=== PATIENT | female | born 1955 | race Hispanic/Latino ===

== ENCOUNTER 2017-05-27 10:13 | Emergency (ER) | payer SELFPAY ==
[2017-05-27 10:53] VITALS: BP 120/86
--- NOTE | 2017-05-27 11:44 | Emergency Department Report ---
Chief Complaint: Upper Respiratory Infection Stated Complaint: CHEST PAIN/HEADACHE/BACK PAIN/FEVER Time Seen by Provider: 05/27/17 11:15 - HPI History of Present Illness: numerous complaints states she cant take it any more coughing in triage cig copd hx vss nad no cp no sob no fever left [facility] last pm wo being seen hx chemo vss. sat wnl. no fever. - Exam Vital Signs: Vital Signs 05/27/17 10:47 Temperature 98.4 F Pulse Rate 94 H Respiratory 20 Rate Blood Pressure 120/86 O2 Sat by Pulse 100 Oximetry MSE screening note: Focused history and physical exam performed. Due to findings the following was ordered: ED Disposition for MSE Condition: Stable
--- NOTE | 2017-05-27 11:45 | XRay Report ---
ROUTINE CHEST, TWO VIEWS: Cough PA and lateral views demonstrate the heart and mediastinal contour to be of normal size and shape. The lungs are clear and fully expanded and the soft tissues and bony structures are normal. IMPRESSION: Normal study.
--- NOTE | 2017-05-31 20:07 | ED Elopement Review ---
ED Pt Elopement review - Call Back decision Pt Call Back Decision: No action required
== END 2017-05-27 15:43 | disposition left against medical advice (07) ==
LOC: ED 10:13
DX: R05 Cough (principal); Z53.21 Procedure and treatment not carried out due to patient leaving prior to being seen by health care provider
CPT/HCPCS: 71020

== ENCOUNTER 2021-10-02 13:28 | Outpatient (CLI) | payer OTHER ==
--- NOTE | 2021-10-02 16:24 | XRay Report ---
CERVICAL SPINE 3 VIEWS INDICATION: Neck pain. COMPARISON: None. IMPRESSION: Normal alignment. Mild multilevel degenerative disc disease is evident. C4-5 and C5-6 a ppear to be most affected. There is mild facet arthropathy more so on the left side with C3-4 being m ost affected. No acute osseous or soft tissue abnormality. LUMBOSACRAL SPINE 3 VIEWS INDICATION: BACK PAIN. COMPARISON: None. IMPRESSION: Normal alignment. Mild disc space narrowing is identified at L5-S1. The remaining disc levels are unremarkable. Mild facet arthropathy is evident at L3-4, L4-5 and L5-S1. Mild symmetric de generative changes at the SI joints. No acute osseous or soft tissue abnormality. Signer Name: Osman Puentes Jr, MD Signed: 10/02/2021 4:20 PM Workstation Name: [id number]
== END 2021-10-02 13:29 | disposition home or self-care (01) ==
LOC: XRAY 13:28
PROVIDERS: ATTEND Internal Medicine
DX: M50.322 Other cervical disc degeneration at C5-C6 level (principal); M50.321 Other cervical disc degeneration at C4-C5 level; M47.817 Spondylosis without myelopathy or radiculopathy, lumbosacral region; M47.898 Other spondylosis, sacral and sacrococcygeal region
CPT/HCPCS: 72040; 72100